=== PATIENT | female | born 1955 | race African-American/Black ===

== ENCOUNTER 2023-04-29 02:33 | Emergency (ER) | payer OTHER, MEDICAID ==
[~2023-04-29] VITALS: Ht 167.6 cm; Wt 57.0 kg
[2023-04-29 02:49] VITALS: O2SAT 100
[2023-04-29 08:12] LABS: CLARITY URINE TURBID (CLEAR); COLOR URINE DARK YELLOW (YELLOW); GLUCOSE URINE NEGATIVE (NEGATIVE); KETONES URINE TRACE (NEGATIVE); LEUKOCYTE ESTERASE URINE 2+ (NEGATIVE); NITRITE URINE NEGATIVE (NEGATIVE); OCCULT BLOOD URINE 3+ (NEGATIVE); PH URINE 5.5 (4.5-8.0); PROTEIN URINE 2+ (NEGATIVE); SPECIFIC GRAVITY URINE 1.028 (1.005-1.030)
[2023-04-29 08:50] LABS: BACTERIA URINE 4+; WBC URINE TNTC /hpf (0-2)
[2023-04-29 08:52] LABS: SQUAMOUS EPITHELIAL CELL URINE 1+ /lpf (RARE/1+)
[2023-04-29 08:53] LABS: RBC URINE 25-50 /hpf (0-2)
[2023-04-29] MEDS ORDERED: CEFP200T13 MT (09:23)
[2023-04-29 10:11] VITALS: BP 141/79; PULSE 72; RESP 18; TEMP 98.1
== END 2023-04-29 10:12 | disposition home or self-care (01) ==
LOC: ER 02:33
DX: N39.0 Urinary tract infection, site not specified (principal); I10 Essential (primary) hypertension; Z98.890 Other specified postprocedural states
CPT/HCPCS: 81003; 99283

== ENCOUNTER 2023-09-21 03:08 | Emergency (ER) | payer MEDICARE, MEDICAID ==
[~2023-09-21] VITALS: Ht 167.6 cm; Wt 57.0 kg
[~2023-09-21 03:08] MED LIST: CEFP200T13 MT
[2023-09-21 03:41] VITALS: O2SAT 97
[2023-09-21 04:21] LABS: CLARITY URINE TURBID (CLEAR); COLOR URINE YELLOW (YELLOW); GLUCOSE URINE NEGATIVE (NEGATIVE); KETONES URINE NEGATIVE (NEGATIVE); LEUKOCYTE ESTERASE URINE 3+ (NEGATIVE); NITRITE URINE NEGATIVE (NEGATIVE); OCCULT BLOOD URINE 2+ (NEGATIVE); PROTEIN URINE 1+ (NEGATIVE)
[2023-09-21 04:43] LABS: WBC URINE TNTC /hpf (0-2)
[2023-09-21 04:44] LABS: BACTERIA URINE 2+; SQUAMOUS EPITHELIAL CELL URINE 1+ /lpf (RARE/1+)
[2023-09-21] MEDS ORDERED: METR-167 MT (04:55)
[2023-09-21] MEDS: CEFTRIAXONE SODIUM 500MG VIAL IM ONE (05:25)
[2023-09-21] MEDS: AZITHROMYCIN 500 MG TABLET PO ONE (05:25)
[2023-09-21 05:30] VITALS: BP 140/82; PULSE 83; RESP 16; TEMP 98.4
[2023-09-24 04:07] LABS: CHLAMYDIA TRACHOMATIS NAA Negative (Negative); NEISSERIA GONORRHOEAE NAA Negative (Negative)
== END 2023-09-21 05:36 | disposition home or self-care (01) ==
LOC: ER 05:18
DX: N39.0 Urinary tract infection, site not specified (principal); N89.8 Other specified noninflammatory disorders of vagina; I10 Essential (primary) hypertension
CPT/HCPCS: 99283; 87491; 87591; 81003; 87086; 96372; J0696

== ENCOUNTER 2023-10-29 19:52 | Emergency (ER) | payer MEDICARE, MEDICAID ==
[~2023-10-29] VITALS: Ht 167.6 cm; Wt 59.0 kg
[~2023-10-29 19:52] MED LIST changes: +METR-167 MT
[2023-10-29 20:15] VITALS: O2SAT 95
[2023-10-29 21:42] LABS: CLARITY URINE TURBID (CLEAR); COLOR URINE RED (YELLOW); GLUCOSE URINE NEGATIVE (NEGATIVE); KETONES URINE NEGATIVE (NEGATIVE); LEUKOCYTE ESTERASE URINE 3+ (NEGATIVE); NITRITE URINE NEGATIVE (NEGATIVE); OCCULT BLOOD URINE 3+ (NEGATIVE); PH URINE 6.5 (4.5-8.0); PROTEIN URINE 3+ (NEGATIVE); SPECIFIC GRAVITY URINE 1.027 (1.005-1.030)
[2023-10-29 21:52] LABS: RBC URINE 50-100 /hpf (0-2); SQUAMOUS EPITHELIAL CELL URINE 2+ /lpf (RARE/1+); WBC URINE 25-50 /hpf (0-2)
[2023-10-29 21:53] LABS: BACTERIA URINE 4+
[2023-10-29] MEDS ORDERED: CEFP200T13 MT (22:12)
[2023-10-29] MEDS ORDERED: METR375C2 MT (22:13)
[2023-10-29 22:21] VITALS: BP 146/92; PULSE 81; RESP 16; TEMP 98.4
== END 2023-10-29 22:22 | disposition home or self-care (01) ==
LOC: ER 19:52
DX: N39.0 Urinary tract infection, site not specified (principal); I10 Essential (primary) hypertension; Z98.890 Other specified postprocedural states
CPT/HCPCS: 81003; 99284

== ENCOUNTER 2024-01-07 09:47 | Inpatient (IN) | payer MEDICARE, MEDICAID ==
[~2024-01-07] VITALS: Ht 170.2 cm; Wt 59.0 kg
[~2024-01-07 09:47] MED LIST changes: +METR375C2 MT
[2024-01-07 10:46] VITALS: O2SAT 98
[2024-01-07 11:29] LABS: BASOPHILS % 0.3 % (0.0-2.0); DIFFERENTIAL COMMENT 0; EOSINOPHILS % 2.3 % (0.0-5.0); HEMATOCRIT. 33.4 % (36.0-48.0); HEMOGLOBIN. 10.9 g/dL (12.0-16.0); MEAN CORPUSCULAR HEMOGLOBIN 25.5 pg (28.0-32.0); MEAN CORPUSCULAR HGB CONC 32.5 g/dL (31.0-37.0); MEAN CORPUSCULAR VOLUME 78.4 fL (81.0-99.0); MEAN PLATELET VOLUME 7.6 fl (7.4-10.4); MONOCYTES % 5.6 % (2.0-8.0); NEUTROPHILS % 57.8 % (40.0-76.0); PLATELET 440 x1000/uL (130-400); RED BLOOD CELL COUNT 4.26 mill/uL (4.2-5.4); RED CELL DISTRIBUTION WIDTH 17.1 % (11.6-14.6); WHITE BLOOD COUNT 8.3 x1000/uL (4.5-11.0)
[2024-01-07 11:36] LABS: CARBON DIOXIDE 28 mEq/L (21-32); CHLORIDE 104 mEq/L (98-107); POTASSIUM 3.1 mEq/L (3.5-5.1); SODIUM 138 mEq/L (136-145)
[2024-01-07 11:38] LABS: PARTIAL THROMBOPLASTIN TIME 27.1 sec (23.4-31.0); PROTHROMBIN TIME 10.7 sec (9.6-11.0)
[2024-01-07 11:41] LABS: CREATININE 0.6 mg/dL (0.6-1.0)
[2024-01-07 11:42] LABS: GLUCOSE 130 mg/dL (70-105); UREA NITROGEN BLOOD 21 mg/dL (9-23)
[2024-01-07] MEDS: POTASSIUM CHLORIDE 20MEQ/PACKET PO ONE (12:05)
[2024-01-07] MEDS ORDERED: ONDANSETRON HCL 4MG/2ML INJ IV PRN (15:15)
[2024-01-07] MEDS ORDERED: ACETAMINOPHEN 325MG TABLET PO PRN ×2 (15:15)
[2024-01-07] MEDS ORDERED: GUAIFENESIN 200MG/10ML SUGAR FREE UDC PO PRN (15:15)
[2024-01-07] MEDS ORDERED: CLONIDINE 0.1MG TABLET PO PRN (15:15)
[2024-01-07] MEDS ORDERED: MAGNESIUM/ALUMINUM HYDROXIDE/SIMETHICONE 30ML UDC PO PRN (15:15)
[2024-01-07] MEDS ORDERED: DOCUSATE SODIUM 100MG CAPSULE PO PRN (15:15)
[2024-01-07] MEDS ORDERED: IPRATROPIUM/ALBUTEROL 0.5-3(2.5)MG/3ML NEB HHN PRN (15:15)
[2024-01-07] MEDS: DEXT 5%/LACTATED RINGERS 1,000 ML IV SCH (16:30)
[2024-01-07] MEDS ORDERED: HYDRALAZINE 20MG/ML VIAL IV PRN (16:45)
[2024-01-07] MEDS: AMLODIPINE 10MG TABLET PO SCH (18:28)
[2024-01-07 19:27] LABS: CHLORIDE 105 mEq/L (98-107); POTASSIUM 3.9 mEq/L (3.5-5.1); SODIUM 137 mEq/L (136-145)
[2024-01-07 19:28] LABS: CALCIUM 9.2 mg/dL (8.7-10.4); CARBON DIOXIDE 25 mEq/L (21-32)
[2024-01-07 19:33] LABS: CREATININE 0.5 mg/dL (0.6-1.0); GLUCOSE 88 mg/dL (70-105); IRON 50 ug/dL (50-170); UREA NITROGEN BLOOD 12 mg/dL (9-23)
[2024-01-07 19:36] LABS: TOTAL IRON BINDING CAPACITY 456 ug/dl (250-425)
[2024-01-07 19:40] LABS: FERRITIN 77 ng/mL (10-291); FOLIC ACID (FOLATE) SERUM 16.46 ng/mL (>5.38); VITAMIN B12 SERUM 502 pg/mL (211-911)
[2024-01-07 22:30] VITALS: BP 144/70; PULSE 57; RESP 18; TEMP 36.6404
[2024-01-08] MEDS: HYDRALAZINE 10 MG in SODIUM CHLORIDE 0.9% 49.5 ML IV PRN (04:43)
[2024-01-08] MEDS: MORPHINE SULFATE 2 MG/ML INJ (NOT FOR IM USE) IV PRN (05:45)
[2024-01-08 06:50] LABS: CALCIUM 8.5 mg/dL (8.7-10.4); CHLORIDE 106 mEq/L (98-107); POTASSIUM 3.8 mEq/L (3.5-5.1); SODIUM 139 mEq/L (136-145)
[2024-01-08 06:51] LABS: CARBON DIOXIDE 23 mEq/L (21-32)
[2024-01-08 06:55] LABS: GLUCOSE 93 mg/dL (70-105); T4 FREE 1.14 ng/dL (0.89-1.76)
[2024-01-08 06:56] LABS: BASOPHILS % 0.3 % (0.0-2.0); CREATININE 0.5 mg/dL (0.6-1.0); DIFFERENTIAL COMMENT 0; EOSINOPHILS % 0.5 % (0.0-5.0); HEMATOCRIT. 39.9 % (36.0-48.0); HEMOGLOBIN. 12.8 g/dL (12.0-16.0); MEAN CORPUSCULAR HEMOGLOBIN 25.3 pg (28.0-32.0); MONOCYTES % 3.7 % (2.0-8.0); NEUTROPHILS % 57.5 % (40.0-76.0); PLATELET 454 x1000/uL (130-400); RED BLOOD CELL COUNT 5.06 mill/uL (4.2-5.4); RED CELL DISTRIBUTION WIDTH 17.5 % (11.6-14.6); TRIGLYCERIDE 82 mg/dL (0-150); UREA NITROGEN BLOOD 13 mg/dL (9-23); WHITE BLOOD COUNT 9.8 x1000/uL (4.5-11.0)
[2024-01-08 06:57] LABS: LDL CHOLESTEROL 106 mg/dL (5-100)
[2024-01-08 06:58] LABS: CHOLESTEROL 167 mg/dL (<200); HDL CHOLESTEROL 48 mg/dL (>65)
[2024-01-08 08:00] VITALS: BP 173/89; PULSE 79; RESP 20; TEMP 36.114; O2SAT 98
[2024-01-08] MEDS: PANTOPRAZOLE SODIUM 40 MG/VIAL IV SCH (08:27)
[2024-01-08] MEDS: LORAZEPAM 2MG/ML INJ IV NR (09:38)
[2024-01-08 12:00] VITALS: BP 155/82; PULSE 89; RESP 20; TEMP 36.6696; O2SAT 96
[2024-01-08] MEDS ORDERED: BUPIVACAINE HCL/PF 0.5% (5MG/ML) 10ML ONE (14:46)
[2024-01-08] MEDS ORDERED: VANCOMYCIN HCL 1GM VIAL ONE (14:46)
[2024-01-08] MEDS ORDERED: HYDROCODONE/ACETAMINOPHEN 5/325MG TABLET PO PRN (15:00)
[2024-01-08] MEDS ORDERED: ONDANSETRON HCL 4MG/2ML INJ IV PRN ×2 (15:00→17:15)
[2024-01-08] MEDS ORDERED: HYDROMORPHONE HCL/PF 2MG/ML INJ IV PRN ×2 (15:00→17:15)
[2024-01-08] MEDS ORDERED: DEXAMETHASONE 4MG/ML 1ML VIAL ONE (15:15)
[2024-01-08] MEDS ORDERED: NALOXONE HCL 0.4MG/ML VIAL IV PRN (15:15)
[2024-01-08] MEDS ORDERED: ONDANSETRON HCL 4MG/2ML INJ ONE (15:15)
[2024-01-08] MEDS ORDERED: PROPOFOL 200MG/20ML VIAL IV ONE (15:15)
[2024-01-08] MEDS ORDERED: FENTANYL CITRATE/PF 50MCG/ML 2ML VIAL ONE (15:15)
[2024-01-08] MEDS ORDERED: MIDAZOLAM HCL 2 MG/2 ML VIAL ONE (15:15)
[2024-01-08] MEDS ORDERED: LIDOCAINE HCL 1% 20ML VIAL ONE (15:17)
[2024-01-08] MEDS ORDERED: HYDROMORPHONE HCL/PF 1MG/ML INJ ONE (15:51)
[2024-01-08] MEDS ORDERED: PHENYLEPHRINE HCL 10MG/ML 1ML IV ONE ×2 (16:05→16:16)
[2024-01-08] MEDS ORDERED: CEFAZOLIN 1000MG PREMIX 50 ML IV SCH (16:30)
[2024-01-08] MEDS ORDERED: HYDROMORPHONE HCL/PF 1MG/ML INJ IV PRN (16:55)
[2024-01-08] MEDS ORDERED: LABETALOL 5MG/ML 4ML INJ IV PRN (17:15)
[2024-01-08] MEDS ORDERED: MEPERIDINE HCL/PF 25MG/ML CPJ IV PRN (17:15)
[2024-01-08 17:18] LABS: ALANINE AMINOTRANSFERASE 9 IU/L (10-49); ALBUMIN 3.9 g/dL (3.2-4.8); ASPARTATE AMINOTRANSFERASE 20 IU/L (<34); BILIRUBIN DIRECT 0.1 mg/dL (<=3.0)
[2024-01-08 17:19] LABS: BILIRUBIN TOTAL 0.3 mg/dL (0.1-1.0); PROTEIN TOTAL 7.7 g/dL (6.0-8.3)
[2024-01-08] MEDS: HYDROMORPHONE HCL/PF 1MG/ML INJ IV PRN (17:20)
[2024-01-08 20:00] VITALS: BP 109/69; PULSE 86; RESP 20; TEMP 36.3918; O2SAT 100
[2024-01-08] MEDS: HYDROCODONE/ACETAMINOPHEN 5/325MG TABLET PO PRN (23:55)
[2024-01-09] VITALS: BP 110/70; PULSE 82; RESP 20; TEMP 36.50292; O2SAT 99
[2024-01-09 03:40] VITALS: BP 110/70; PULSE 82; RESP 20
[2024-01-09] MEDS ORDERED: ENOXAPARIN 40MG/0.4ML SYR SUBCUT SCH (09:00)
== END 2024-01-09 03:30 | disposition left against medical advice (07) | DRG 482 ==
LOC: ER 09:47 → EDBEDREQ 11:07 → 5WST 12:34 → EDBEDREQ 12:38 → 6WST 23:26
PROVIDERS: ADMIT Internal Medicine; ATTEND Internal Medicine
PROC: 0QS634Z Reposition Right Upper Femur with Internal Fixation Device, Percutaneous Approach (ICD-10-PCS; principal; 2024-01-08)
DX: S72.141A Displaced intertrochanteric fracture of right femur, initial encounter for closed fracture (principal); D50.9 Iron deficiency anemia, unspecified; E87.6 Hypokalemia; F14.10 Cocaine abuse, uncomplicated; I10 Essential (primary) hypertension; J45.909 Unspecified asthma, uncomplicated; Z53.29 Procedure and treatment not carried out because of patient's decision for other reasons; W01.0XXA Fall on same level from slipping, tripping and stumbling without subsequent striking against object, initial encounter; Z20.822 Contact with and (suspected) exposure to COVID-19; M85.80 Other specified disorders of bone density and structure, unspecified site; Y93.89 Activity, other specified; Y92.89 Other specified places as the place of occurrence of the external cause; Y99.8 Other external cause status
CPT/HCPCS: 36415; 73521; 73552; 76000; 80048; 80061; 80076; 82607; 82728; 82746; 83540; 83550; 83735; 84132; 84439; 84481; 85025; 86850; 86900; 87426; 93005; 99291; A6261; J0690; J1100; J1170; J2060; J2250; J2270; J2405; J2470; J2704; J3010; J3370; J3490; J7030; J7120; J7121; C1713

== ENCOUNTER 2024-06-24 17:36 | Emergency (ER) | payer MEDICARE, MEDICAID ==
[~2024-06-24] VITALS: Ht 160 cm; Wt 52.0 kg
[2024-06-24 17:59] VITALS: TEMP 37.1; O2SAT 98
[2024-06-24 20:55] LABS: CLARITY URINE CLEAR (CLEAR); COLOR URINE YELLOW (YELLOW); GLUCOSE URINE NEGATIVE (NEGATIVE); KETONES URINE NEGATIVE (NEGATIVE); LEUKOCYTE ESTERASE URINE 3+ (NEGATIVE); NITRITE URINE NEGATIVE (NEGATIVE); OCCULT BLOOD URINE 2+ (NEGATIVE); PH URINE 6.5 (4.5-8.0); PROTEIN URINE 1+ (NEGATIVE); SPECIFIC GRAVITY URINE 1.018 (1.005-1.030)
[2024-06-24] MEDS ORDERED: DOXY100C5 MT (21:29)
[2024-06-24 21:43] LABS: BACTERIA URINE TRACE; SQUAMOUS EPITHELIAL CELL URINE FEW /lpf (RARE/1+); WBC URINE 50-100 /hpf (0-2)
[2024-06-24] MEDS: CEFTRIAXONE SODIUM 500MG VIAL IM ONE (22:16)
[2024-06-24 22:36] VITALS: BP 148/90; PULSE 79; RESP 19; O2SAT 99
[2024-06-27 04:08] LABS: CHLAMYDIA TRACHOMATIS NAA Negative (Negative); NEISSERIA GONORRHOEAE NAA Negative (Negative)
== END 2024-06-24 22:37 | disposition home or self-care (01) ==
LOC: ER 17:36
DX: N39.0 Urinary tract infection, site not specified (principal); N89.8 Other specified noninflammatory disorders of vagina; A64 Unspecified sexually transmitted disease; I10 Essential (primary) hypertension; J45.909 Unspecified asthma, uncomplicated; F10.90 Alcohol use, unspecified, uncomplicated; F12.90 Cannabis use, unspecified, uncomplicated; Y90.9 Presence of alcohol in blood, level not specified
CPT/HCPCS: 99283; 87491; 87591; 81003; 87086; 96372; J0696

== ENCOUNTER 2024-08-27 02:01 | Emergency (ER) | payer MEDICARE, MEDICAID ==
[~2024-08-27] VITALS: Ht 157.5 cm; Wt 54.0 kg
[~2024-08-27 02:01] MED LIST changes: +DOXY100C5 MT
[2024-08-27 02:03] VITALS: TEMP 36.8; O2SAT 96
[2024-08-27 03:43] LABS: BASOPHILS % 0.2 % (0.0-2.0); DIFFERENTIAL COMMENT 0; EOSINOPHILS % 0.2 % (0.0-5.0); HEMATOCRIT. 33.6 % (36.0-48.0); HEMOGLOBIN. 10.7 g/dL (12.0-16.0); LYMPHOCYTES % 16.5 % (20.0-50.0); MEAN CORPUSCULAR HEMOGLOBIN 22.9 pg (28.0-32.0); MEAN CORPUSCULAR HGB CONC 31.9 g/dL (31.0-37.0); MEAN CORPUSCULAR VOLUME 71.7 fL (81.0-99.0); MEAN PLATELET VOLUME 8.1 fl (7.4-10.4); MONOCYTES % 5.7 % (2.0-8.0); NEUTROPHILS % 77.4 % (40.0-76.0); PLATELET 343 x1000/uL (130-400); RED BLOOD CELL COUNT 4.68 mill/uL (4.2-5.4); RED CELL DISTRIBUTION WIDTH 21.9 % (11.6-14.6); WHITE BLOOD COUNT 11.4 x1000/uL (4.5-11.0)
[2024-08-27 03:53] LABS: CHLORIDE 104 mEq/L (98-107); POTASSIUM 3.5 mEq/L (3.5-5.1); SODIUM 139 mEq/L (136-145)
[2024-08-27 03:54] LABS: CARBON DIOXIDE 28 mEq/L (21-32)
[2024-08-27 03:59] VITALS: BP 148/96; PULSE 102; RESP 18; O2SAT 97
[2024-08-27 03:59] LABS: CREATININE 0.7 mg/dL (0.6-1.0); ETHANOL BLOOD < 10 mg/dL (<10); GLUCOSE 109 mg/dL (70-105); TROPONIN I HIGH SENSITIVITY 9 ng/L (3.0-34); UREA NITROGEN BLOOD 12 mg/dL (9-23)
[2024-08-27 04:00] LABS: PARTIAL THROMBOPLASTIN TIME 27.6 sec (23.4-31.0)
[2024-08-27] MEDS ORDERED: NALO4SPR BOTHNSTRLS (04:33)
== END 2024-08-27 04:42 | disposition home or self-care (01) ==
LOC: ER 02:01
DX: T40.1X1A Poisoning by heroin, accidental (unintentional), initial encounter (principal); F15.10 Other stimulant abuse, uncomplicated; J45.909 Unspecified asthma, uncomplicated; I10 Essential (primary) hypertension; Z00.00 Encounter for general adult medical examination without abnormal findings; Z79.899 Other long term (current) drug therapy; Z98.890 Other specified postprocedural states; Y92.9 Unspecified place or not applicable
CPT/HCPCS: 36415; 71045; 80048; 80320; 83880; 84484; 85025; 93005; 99285; A4606; G0480